=== PATIENT | male | born 1970 | race Caucasian/White ===

== ENCOUNTER 2025-08-17 05:56 | Outpatient (CLI) | payer BC, OTHER ==
[2025-08-17] MEDS ORDERED: GADOTERATE MEGLUMINE 7.5 MMOL/15 ML VIAL IV ONE (06:36)
[2025-08-17] MEDS ORDERED: LIDOcaine 1%/PF 5ML 10 MG/ML VIAL ONE (06:36)
[2025-08-17] MEDS ORDERED: iohexol 300 MG/1 ML 50ml polymer ONE (06:36)
[2025-08-17] MEDS ORDERED: LIDOcaine 1% 30ml preserv. free vial ONE (06:36)
--- NOTE | 2025-08-17 10:21 | RADIOLOGY REPORT ---
CLINICAL INDICATION: PAIN IN RIGHT WRIST TECHNIQUE: Multiplanar, multi-sequence MRI of the right wrist was performed with intra-articular contrast. Contrast: None COMPARISON: None INTERPRETATION: Bones: There is no fracture. There is no marrow replacing lesion. Joints: Good intra-articular distention of the wrist joint. The joint spaces are maintained. There cysts in the triquetrum. Alignment is preserved. There is synovitis in the distal radioulnar joint. Ligaments: The scapholunate and lunotriquetral ligaments are intact. Extrinsic volar ligaments are intact. TFCC: There is T2 hyperintensity along the undersurface fibers of the foveal attachment of the TFCC and contrast noted in a defect on T1 postcontrast images. No tear of the articular disc portion. Tendons: The dorsal extensor tendons are intact. The flexor tendons are intact. No tenosynovitis. Carpal tunnel: Flexor tendons within the carpal tunnel are intact. Median nerve intact. Neurovascular: Visualized ulna and radial nerves are intact. Muscles: Regional muscles are preserved in bulk and signal characteristics. Soft tissues: Unremarkable. IMPRESSION: 1. Partial undersurface tear of the foveal attachment of the TFCC. 2. 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 3. Synovitis in the distal radioulnar joint.
--- NOTE | 2025-08-17 10:21 | RADIOLOGY REPORT ---
ANGIO ARTHROGRAM (A) Date: 08/17/2025 07:49 AM Clinical History: PAIN IN RIGHT WRIST Comparison: None Procedure: Verbal and written informed consent were obtained from the patient for the procedure of RIGHT WRSIT JOINT fluoroscopically guided arthrogram, after the procedure, risks, and benefits of the procedure were explained to the patient. Risks include bleeding, infection, reaction to injected medications, and damage to surrounding anatomic structures. The patient's questions were answered. The patient's most recent medical history was reviewed. A time out was performed to verify the patient's name, date of , and correct location of the procedure, prior to initiation of the procedure. The patient was placed supine on the fluoroscopic table and the area overlying the RIGHT WRIST JOINT was prepped and draped in the usual sterile fashion. The patient tolerated the procedure well. There were no immediate complications. Home-care instructions were reviewed with the patient prior to the patient's discharge from the fluoroscopy suite. The patient verbally affirmed understanding of these instructions. Impression: Technically successful fluoroscopically guided RIGHT WRIST JOINT arthrogram. The patient was transported to MRI for further imaging at the completion of the procedure. Procedure by Dr. Blount
== END 2025-08-17 23:59 | disposition home or self-care (01) ==
LOC: RAD 05:56
PROVIDERS: ATTEND Physician Assistant
DX: M25.531 Pain in right wrist (principal); M19.031 Primary osteoarthritis, right wrist; M65.841 Other synovitis and tenosynovitis, right hand; Z79.1 Long term (current) use of non-steroidal anti-inflammatories (NSAID); Z79.899 Other long term (current) drug therapy
CPT/HCPCS: 25246; 73222; 77002; A9575; J2003; J3490; Q9967